=== PATIENT | female | born 1980 | race Caucasian/White ===

== ENCOUNTER → 2019-01-28 | Outpatient (CLI) | payer BC, OTHER ==
--- NOTE | 2019-01-28 15:17 | Diagnostic Imaging Report ---
INDICATION: Right axilla fullness. COMPARISON: No prior examinations are available for comparison. TECHNIQUE: The current study was also evaluated with a Computer Aided Detection (CAD) system. 3-D Tomographic imaging was also performed. FINDINGS: The fibroglandular gland tissue is heterogeneously dense bilaterally. There is no dominant mass, spiculated lesion, or suspicious calcification identified. The skin, nipples, and axillae are unremarkable. Ultrasound of the palpable abnormality in the right axilla was performed which was negative. IMPRESSION: Negative exam. ACR BI-RADS Category 1: Negative. Result letter will be mailed to the patient. Note: At least 10% of breast cancer is not imaged by mammography. Dictated by: Dictated on workstation # [id number]
--- NOTE | 2019-01-28 15:18 | Diagnostic Imaging Report ---
INDICATION: Fullness in the right axilla. COMPARISON: Correlation is made with the mammogram from this same date. TECHNIQUE: A targeted ultrasound of the right axilla was performed. FINDINGS: There is no evidence of a discrete solid or cystic mass in the right axilla. IMPRESSION: Negative right breast ultrasound. ACR BI-RADS Category 1: Negative. Dictated by: Dictated on workstation # [id number]
== END ==
LOC: RAD 13:54
PROVIDERS: ATTEND Obstetrics & Gynecology
DX: N63.10 Unspecified lump in the right breast, unspecified quadrant (principal)